=== PATIENT | male | born 1970 | race Caucasian/White ===

== ENCOUNTER 2018-03-15 13:20 | Emergency (ER) | payer MEDICAID, OTHER ==
[~2018-03-15] VITALS: Ht 172.7 cm; Wt 64.2 kg
[~2018-03-15 13:20] MED LIST: NO HOME MEDS
[2018-03-15 13:43] VITALS: BP 164/88
[2018-03-15] MEDS ORDERED: IBUP-1984 PO (14:53)
[2018-03-15] MEDS ORDERED: CEPH-572 PO (14:53)
[2018-03-15] MEDS ORDERED: SULF1TAB49 PO (14:53)
[2018-03-15] MEDS ORDERED: ibuprofen tablet 400 MG TABLET PO ONE (14:55)
== END 2018-03-15 15:08 | disposition home or self-care (01) ==
LOC: ER 13:20
DX: L03.116 Cellulitis of left lower limb (principal); F15.90 Other stimulant use, unspecified, uncomplicated; F12.90 Cannabis use, unspecified, uncomplicated; F17.200 Nicotine dependence, unspecified, uncomplicated; Z59.0 Homelessness
CPT/HCPCS: 99284

== ENCOUNTER 2018-12-05 10:57 | Emergency (ER) | payer SELFPAY ==
[~2018-12-05] VITALS: Ht 175.3 cm; Wt 56.8 kg
[~2018-12-05 10:57] MED LIST changes: +LIDOcaine 1% W/epiNEPHrine 1:100,000 20ml vial ONE
[2018-12-05 11:12] VITALS: BP 109/76
[2018-12-05] MEDS ORDERED: SULF1TAB49 PO (12:57)
[2018-12-05] MEDS ORDERED: ibuprofen tablet 400 MG TABLET PO ONE (13:00)
== END 2018-12-05 13:17 | disposition home or self-care (01) ==
LOC: ER 10:57
DX: L02.416 Cutaneous abscess of left lower limb (principal); F17.200 Nicotine dependence, unspecified, uncomplicated; F12.90 Cannabis use, unspecified, uncomplicated; F15.90 Other stimulant use, unspecified, uncomplicated; F10.99 Alcohol use, unspecified with unspecified alcohol-induced disorder; Z59.0 Homelessness; Z79.899 Other long term (current) drug therapy; Y90.9 Presence of alcohol in blood, level not specified
CPT/HCPCS: 10060; 99283

== ENCOUNTER 2019-10-06 16:39 | Emergency (ER) | payer MEDICAID ==
[~2019-10-06] VITALS: Ht 175.3 cm; Wt 61.0 kg
[~2019-10-06 16:39] MED LIST changes: -LIDOcaine 1% W/epiNEPHrine 1:100,000 20ml vial ONE
[2019-10-06 16:51] VITALS: BP 130/90
[2019-10-06] MEDS ORDERED: sulfamethoxazole/trimethoprim DS (800/160mg) tablet PO ONE (17:20)
[2019-10-06] MEDS ORDERED: BACDS PO (17:21)
== END 2019-10-06 17:49 | disposition home or self-care (01) ==
LOC: ER 16:40
DX: L08.89 Other specified local infections of the skin and subcutaneous tissue (principal); L02.416 Cutaneous abscess of left lower limb; F12.90 Cannabis use, unspecified, uncomplicated; F15.90 Other stimulant use, unspecified, uncomplicated; Z87.01 Personal history of pneumonia (recurrent); Z72.89 Other problems related to lifestyle; Z59.0 Homelessness; Z79.2 Long term (current) use of antibiotics
CPT/HCPCS: 99283